=== PATIENT | male | born 1980 | race Caucasian/White ===

== ENCOUNTER 2020-07-04 14:40 | Emergency (ER) | payer OTHER ==
[~2020-07-04] VITALS: Ht 188 cm; Wt 113.4 kg
[2020-07-04] MEDS ORDERED: HYDROCHLOROTHIA25 MG PO (15:16)
[2020-07-04] MEDS ORDERED: LISINOPRIL30 MG PO (15:16)
[2020-07-04] MEDS ORDERED: DULOXETINE HCL60 MG PO (15:16)
[2020-07-04] MEDS ORDERED: PRAVASTATIN SOD20 MG PO (15:16)
[2020-07-04] MEDS ORDERED: NAPROXEN500 MG PO (15:16)
[2020-07-04] MEDS ORDERED: PREDNISONE20 MG PO (17:09)
== END 2020-07-04 17:38 | disposition home or self-care (01) ==
LOC: ED 14:40
DX: S39.012A Strain of muscle, fascia and tendon of lower back, initial encounter (principal); X58.XXXA Exposure to other specified factors, initial encounter; Z88.5 Allergy status to narcotic agent
CPT/HCPCS: 80048; 81001; 83735; 85025; 96372; 99283; J1100; J1885

== ENCOUNTER 2020-11-29 09:41 | Emergency (ER) | payer OTHER ==
[~2020-11-29] VITALS: Ht 188 cm; Wt 113.4 kg
[~2020-11-29 09:41] MED LIST: DULOXETINE HCL60 MG PO; HYDROCHLOROTHIA25 MG PO; LISINOPRIL30 MG PO; NAPROXEN500 MG PO; PRAVASTATIN SOD20 MG PO; PREDNISONE20 MG PO
== END 2020-11-29 12:15 | disposition home or self-care (01) ==
LOC: ED 09:41
DX: U07.1 COVID-19 (principal); I10 Essential (primary) hypertension; Z88.5 Allergy status to narcotic agent; Z79.899 Other long term (current) drug therapy
CPT/HCPCS: 71045; 99283-25; C9803; U0003

== ENCOUNTER 2020-12-05 11:54 | Emergency (ER) | payer OTHER ==
[~2020-12-05] VITALS: Ht 188 cm; Wt 113.4 kg
--- OUTSIDE RECORDS SUMMARY | 2020-12-05 12:02 | XMS ---
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 Chante has no Care Guidelines for this patient. Sabina VISIT COUNT (12 MO.) 3 [facility] [place] [facility] TOTAL 3 NOTE: Visits indicate total known visits. ED/C VISIT TRACKING (12 MO.) 12/05/2020 11:[address] [facility] [place] TYPE: Emergency COMPLAINT: - FEVER, SOB, COVID + 11/29/2020 09:42 [facility] [place] TYPE: Emergency COMPLAINT: - FLU SYMPTOMS DIAGNOSES: - Other rodent exterminator (current) drug therapy - Acute pharyngitis, unspecified - Allergy status to narcotic agent - COVID-19 - Essential (primary) hypertension 07/04/2020 14:41 [facility] [place] TYPE: Emergency COMPLAINT: - BACK PAIN, HEADACHE DIAGNOSES: - Exposure to other specified factors, initial encounter - Allergy status to narcotic agent - Low back pain - Strain of muscle, fascia and tendon of lower back, initial encounter INPATIENT VISIT TRACKING (12 MO.) No inpatient visits to display in this time frame [email or web address]
[2020-12-05] MEDS ORDERED: ONDANSETRON ODT8 MG PO (13:13)
== END 2020-12-05 13:34 | disposition home or self-care (01) ==
LOC: ED 11:54
DX: U07.1 COVID-19 (principal); I10 Essential (primary) hypertension; Z88.5 Allergy status to narcotic agent; Z79.899 Other long term (current) drug therapy
CPT/HCPCS: 99283

== ENCOUNTER 2023-09-20 19:43 | Emergency (ER) | payer OTHER ==
[~2023-09-20] VITALS: Ht 188 cm; Wt 120.8 kg
[~2023-09-20 19:43] MED LIST changes: +ONDANSETRON ODT8 MG PO
[2023-09-20 20:11] LABS: BILIRUBIN, URINE NEGATIVE (negative); BLOOD/HGB, URINE LARGE (Negative); KETONE, URINE NEGATIVE (Negative); LEUK ESTERASE, URINE NEGATIVE (negative); NITRITE, URINE NEGATIVE (negative)
[2023-09-20 20:16] LABS: EPITHELIAL CELLS, URINE SQUAMOUS 1+ /lpf (0-1+); RED BLOOD CELLS, URINE >50 /hpf (0-5)
[2023-09-20 20:17] LABS: BACTERIA, URINE RARE /hpf (negative); CASTS, URINE NONE SEEN \\lpf; CRYSTALS, URINE CALCIUM OXALATE 1+ (0-1+); REFLEX CULTURE, URINE No (No)
[2023-09-20] MEDS ORDERED: KETOROLAC TROMETHAMINE 30 MG/ML VIAL IM ONE (20:30)
[2023-09-20 20:46] LABS: HEMOGLOBIN 15.3 g/dL (12.0-18.0)
[2023-09-20 20:48] LABS: BASOPHILS 0.7 % (0-2); EOSINOPHILS 1.6 % (0-6); HEMATOCRIT 45.2 % (35.0-50.0); MCH 30.5 (27-36); MCHC 33.8 g/dl (30-36); MONOCYTES 9.5 % (0-12); NEUTROPHILS 68.2 % (39-80); PLATELET COUNT 241 K/uL (140-440); RBC 5.02 M/ul (4.3-5.7); RDW 13.2 (10.5-15.0)
[2023-09-20 20:54] LABS: ANION GAP 15.4 (7-21); BUN/CREATININE RATIO 14.87 (6.0-28.6); CALCIUM 9.2 mg/dL (8.5-10.1); CREATININE, SERUM 1.21 mg/dL (0.70-1.30); POTASSIUM 3.4 mmol/L (3.5-5.1)
[2023-09-20] MEDS ORDERED: ONDANSETRON 4 MG TAB ODT SL ONE (21:15)
[2023-09-20] MEDS ORDERED: TAMSULOSIN HCL 0.4 MG CAP PO ONE (21:15)
[2023-09-20] MEDS ORDERED: OXYCODONE/APAP 5/325 TAB PO ONE (21:15)
[2023-09-20] MEDS ORDERED: ONDANSETRON ODT4 MG PO (21:24)
[2023-09-20] MEDS ORDERED: PERCOCET 5-3251 EACH PO (21:24)
[2023-09-20] MEDS ORDERED: FLOMAX0.4 MG PO (21:24)
[2023-09-20] MEDS ORDERED: cloNIDine HCL 0.1 MG TAB PO ONE (21:45)
[2023-09-20] MEDS ORDERED: fentaNYL citrate 100 MCG/2 ML VIAL IV ONE (22:15)
[2023-09-20] MEDS ORDERED: SODIUM CHLORIDE 0.9% 1,000 ML IV PRN (22:15)
[2023-09-20] MEDS ORDERED: lisinopriL 10 MG TAB PO ONE (23:15)
[2023-09-20] MEDS ORDERED: hydroCHLOROthiazide 25 MG TAB PO ONE (23:15)
[2023-09-20] MEDS ORDERED: LORazepam 1 MG TAB PO ONE (23:15)
[2023-09-21] MEDS ORDERED: cloNIDine HCL 0.1 MG TAB PO ONE (00:30)
[2023-09-21] MEDS ORDERED: OXYCODONE/ACETAMINOPHEN 1 TAB HOME.PACK PO ONE (01:15)
[2023-09-21 01:24] VITALS: BP 180/1
== END 2023-09-21 01:26 | disposition home or self-care (01) ==
LOC: ED 19:43
PROVIDERS: Emergency Medicine
DX: N13.2 Hydronephrosis with renal and ureteral calculous obstruction (principal); I10 Essential (primary) hypertension; Z88.5 Allergy status to narcotic agent; Z79.899 Other long term (current) drug therapy
CPT/HCPCS: 36415; 74176; 80048; 80053; 81001; 85025; 96372; 99284-25; A9270; A9270-GY; J1885

== ENCOUNTER 2023-10-11 08:25 | Day surgery (SDC) | payer OTHER ==
[2023-10-09 08:38] VITALS: BP 165/103
[~2023-10-11] VITALS: Ht 188 cm; Wt 120.5 kg
[~2023-10-11 08:25] MED LIST changes: +CEFAZOLIN SODIUM 3 GM/30 ML SYR IV SCH; +FLOMAX0.4 MG PO; +IBLOOD GLUCOSE TEST STRIP 1 EA TEST VI PRN; +LACTATED RINGER'S 1,000 ML IV SCH; +LIDOCAINE HCL 1% 5 ML SDV INJ ONE; +ONDANSETRON ODT4 MG PO; +PERCOCET 5-3251 EACH PO; +iopamidoL 30 ML VIAL ONE
[2023-10-11 08:42] VITALS: BP 186/114
[2023-10-11] MEDS ORDERED: propofoL 200 MG/20 ML VIAL ONE (11:00)
[2023-10-11] MEDS ORDERED: fentaNYL citrate 100 MCG/2 ML VIAL ONE (11:00)
[2023-10-11] MEDS ORDERED: ROCURONIUM BROMIDE 50 MG/5 ML SYR ONE (11:01)
[2023-10-11] MEDS ORDERED: LIDOCAINE HCL 2% 5 ML SDV ONE (11:01)
[2023-10-11] MEDS ORDERED: DEXAMETHASONE SOD PHOS 4 MG/ML VIAL ONE (11:01)
[2023-10-11] MEDS ORDERED: LIDOCAINE HCL 1% 30 ML SDV ONE (11:04)
[2023-10-11] MEDS ORDERED: OXYCODONE/APAP 5/325 TAB PO PRN (11:15)
[2023-10-11] MEDS ORDERED: ondansetron HCL 4 MG/2 ML VIAL IV PRN (11:15)
[2023-10-11] MEDS ORDERED: PHENAZOPYRIDINE HCL 95 MG TAB PO PRN (11:15)
[2023-10-11] MEDS ORDERED: HYDROmorphone HCL 1 MG/ML SYR IV PRN (11:15)
[2023-10-11] MEDS ORDERED: KETOROLAC TROMETHAMINE 30 MG/ML VIAL IV PRN (11:15)
[2023-10-11] MEDS ORDERED: ACETAMINOPHEN 1,000 MG/100 ML VIAL ONE (11:15)
[2023-10-11] MEDS ORDERED: KETOROLAC TROMETHAMINE 30 MG/ML VIAL ONE (11:17)
[2023-10-11] MEDS ORDERED: SUGAMMADEX SODIUM 200 MG/2 ML ML ONE (12:55)
--- NOTE | 2023-10-11 13:09 | NUR ---
10/11/23 1309 Shayna Cummings PT TO PACU SLEEPING ORAL AIRWAY IN PLACE, O2 VIA MASK FOGGING NOTED IN MASK.
[2023-10-11 13:41] VITALS: BP 138/97
--- NOTE | 2023-10-11 14:30 | NUR ---
LE 1330 PATIENT BACK FROM PACU. PATIENT IN TREATMENT ROOM. VITAL SIGNS COMPLETED. REPORT RECIEVED FROM BENJAMIN MIRANDA. PATIENT COMPLAINS OF BEING DIZZY. DENIES PAIN AND BEING NAUSEATED AT THIS TIME. BREATHING EQUAL AND UNLABORED. OXYGEN SATURATIONS ABOVE 90% ON ROOM AIR. PATIENT HAS SMALL AMOUNT OF RED TINGED ON PILLOW. SCD'S ON. IVF INFUSING. LE 1400 PATIENT STATES "I AM FEELING A BIT BETTER." PATIENT TALKING TO FRIEND AND DRINKING COFFEE. CALL LIGHT WITHIN REACH NO FUTHER NEEDS. NO QUESTIONS.
[2023-10-11 14:43] VITALS: BP 174/98
--- NOTE | 2023-10-11 15:00 | NUR ---
LE 1430 PATIENT ALERT AND ORIENTED. VITAL SIGNS COMPLETED. BREATHING EQUAL AND UNLABORED. OXYGEN SATURATIONS ABOVE 90% ON ROOM AIR. PATIENT SURGICAL SITE HAS NO DRAINAGE AT THIS TIME. SCD'S ON IVF INFUSING. LE 1445 PATIENT ABLE TO AMBULATE TO THE RESTROOM. PATIENT VOIDED 200 MLS OF PINK/RED TINGED URINE AND CLEAR. PATIENT AMBULATED BACK TO BED. PATIENT WANTS SOME TIME BEFORE GETTING DRESSED. LE 1500 PATIENT GIVEN ANOTHER JELLO. PATIENT TO START GETTING DRESSED. CALL LIGHT WITHIN REACH. NO FUTHER NEEDS. NO QUESTIONS AT THIS TIME.
--- NOTE | 2023-10-11 15:31 | NUR ---
LE 1515 PATIENT HAS MET DISCHARGE CRITERIA. PATIENT GIVEN DISCHARGE INSTRUCTIONS. NO QUESTIONS AT THIS TIME. IV D/C'D WNL. PATIENT WHEELED OUT OF FACILTY NO FUTHER NEEDS. NO QUESTIONS AT THIS TIME.
[2023-10-13 20:14] LABS: CALCULI MASS 102 mg (())
== END 2023-10-11 15:15 | disposition home or self-care (01) ==
LOC: OPS 08:25 → DS 08:25 → OPS 11:00 → DS 11:00 → OPS 15:15
PROVIDERS: ATTEND Urology
PROC: 0TC08ZZ Extirpation of Matter from Right Kidney, Via Natural or Artificial Opening Endoscopic (ICD-10-PCS; principal; 2023-10-11 11:00)
PROC: 0TC68ZZ Extirpation of Matter from Right Ureter, Via Natural or Artificial Opening Endoscopic (ICD-10-PCS; 2023-10-11 11:00)
DX: N20.2 Calculus of kidney with calculus of ureter (principal); I10 Essential (primary) hypertension; E78.00 Pure hypercholesterolemia, unspecified; Z88.5 Allergy status to narcotic agent
CPT/HCPCS: 00910; 74420; 82365; C1769; C2617; J0131; J0690; J1100; J1885; J2001; J2704; J3010; J3490; J7121; Q9967